=== PATIENT | male | born 1995 | race African-American/Black ===

== ENCOUNTER 2017-08-03 00:09 | Emergency (ER) | payer MEDICAID ==
[~2017-08-03] VITALS: Ht 175.3 cm; Wt 59.0 kg
[2017-08-03 01:40] VITALS: BP 112/63
[2017-08-03] MEDS ORDERED: KETOROLAC 30MG/ML VIAL IV STA (02:09)
[2017-08-03] MEDS ORDERED: ONDANSETRON HCL 4MG/2ML VIAL IV STA (02:09)
[2017-08-03] MEDS ORDERED: SODIUM CHLORIDE 0.9% 1,000 ML IV ONE (02:09)
[2017-08-03] MEDS ORDERED: FAMOTIDINE 20MG/2ML VIAL IV STA (02:09)
== END 2017-08-03 03:24 | disposition left against medical advice (07) ==
LOC: ER 00:16
DX: R10.32 Left lower quadrant pain (principal); F17.200 Nicotine dependence, unspecified, uncomplicated; F12.10 Cannabis abuse, uncomplicated; Z88.1 Allergy status to other antibiotic agents; Z88.2 Allergy status to sulfonamides
CPT/HCPCS: 96374; 96375; 99284; J2405; J3490; J7030; Z7610; J1885

== ENCOUNTER 2017-12-12 22:33 | Emergency (ER) | payer MEDICAID ==
[~2017-12-12] VITALS: Ht 177.8 cm; Wt 63.0 kg
[2017-12-13] MEDS ORDERED: MORPHINE SULFATE 4 MG/ML CPJ (NOT FOR IM USE) IV STA ×2 (00:39→04:39)
[2017-12-13] MEDS ORDERED: ONDANSETRON HCL 4MG/2ML VIAL IV STA (00:39)
[2017-12-13] MEDS ORDERED: SODIUM CHLORIDE 0.9% 1,000 ML IV ONE (00:39)
[2017-12-13] MEDS ORDERED: METRONIDAZOLE 500 MG PREMIX 100 ML IV ONE (00:45)
[2017-12-13] MEDS ORDERED: SODIUM CHLORIDE 0.9% 1000ML BAG (SEPSIS BOLUS) IV ONE (00:45)
[2017-12-13] MEDS ORDERED: LEVOFLOXACIN 750MG PREMIX 150 ML IV ONE (00:45)
[2017-12-13 01:43] LABS: MEAN CORPUSCULAR HEMOGLOBIN 40.9 pg (28.0-32.0); MEAN CORPUSCULAR VOLUME 128.1 fL (80.0-94.0); MEAN PLATELET VOLUME 7.5 fl (7.4-10.4); PLATELET 133 x1000/uL (130-400); RED BLOOD CELL COUNT 1.52 mill/uL (4.7-6.1); RED CELL DISTRIBUTION WIDTH 18.9 % (11.6-14.6)
[2017-12-13] MEDS ORDERED: SODIUM CHLORIDE 0.9% 1,000 ML IV SCH (01:43)
[2017-12-13 01:47] LABS: INR 1.1; PROTHROMBIN TIME 11.4 sec (9.4-11.6)
[2017-12-13 01:52] LABS: CHLORIDE 112 mEq/L (98-107)
[2017-12-13 01:55] LABS: HEMATOCRIT. 19.4 % (42.0-52.0); HEMOGLOBIN. 6.2 g/dL (14.0-18.0)
[2017-12-13 07:28] VITALS: BP 94/44
[2017-12-13 07:30] LABS: ATYPICAL LYMPHOCYTES 2; PLATELET ESTIMATE NORMAL
== END 2017-12-13 09:45 | disposition left against medical advice (07) ==
LOC: ER 22:48 → EDBEDREQTM 12-13 01:46 → EDBEDREQ 12-13 01:46 → ENRESERV 12-13 07:57 → CANRESERV 12-13 07:57 → ER 12-13 09:45 → CANBEDREQ 12-13 16:03
DX: A41.9 Sepsis, unspecified organism (principal); R10.32 Left lower quadrant pain; K44.9 Diaphragmatic hernia without obstruction or gangrene; Z88.2 Allergy status to sulfonamides; Z88.8 Allergy status to other drugs, medicaments and biological substances
CPT/HCPCS: 36415; 71045; 74176; 80053; 83605; 83690; 85025; 85610; 87040; 96365; 96366; 96368; 96375; 96376; 99291; J1956; J2270; J2405; J3490; J7030